=== PATIENT | female | born 1945 | race Two or more races ===

== ENCOUNTER 2022-09-21 08:23 | Outpatient (CLI) | payer OTHER ==
[2022-09-21] MEDS ORDERED: NAMENDA XR7 MG PO (15:14)
== END 2022-09-21 08:32 | disposition home or self-care (01) ==
LOC: RAD 08:23
DX: M25.511 Pain in right shoulder (principal); M79.621 Pain in right upper arm; M25.50 Pain in unspecified joint; R07.2 Precordial pain; S42.231A 3-part fracture of surgical neck of right humerus, initial encounter for closed fracture; S06.0X0A Concussion without loss of consciousness, initial encounter

== ENCOUNTER 2022-09-21 13:02 | Outpatient (CLI) | payer OTHER ==
[2022-09-21] MEDS ORDERED: NAMENDA XR7 MG PO (15:14)
== END 2022-09-21 13:03 | disposition home or self-care (01) ==
LOC: LAB 13:02
PROVIDERS: ATTEND Orthopaedic Surgery
DX: D64.9 Anemia, unspecified (principal); D68.8 Other specified coagulation defects; N39.0 Urinary tract infection, site not specified; E11.9 Type 2 diabetes mellitus without complications; I10 Essential (primary) hypertension

== ENCOUNTER 2022-12-04 09:25 | Outpatient (CLI) | payer OTHER ==
[~2022-12-04 09:25] MED LIST: NAMENDA XR7 MG PO
== END 2022-12-04 09:31 | disposition home or self-care (01) ==
LOC: NUCLEAR 09:25
PROVIDERS: ATTEND Orthopaedic Surgery
DX: M81.0 Age-related osteoporosis without current pathological fracture (principal)

== ENCOUNTER → 2022-12-04 09:50 | Outpatient (CLI) | payer OTHER | END | disposition home or self-care (01) | LOC: LAB 09:50 | PROVIDERS: ATTEND Orthopaedic Surgery | DX: S42.231D 3-part fracture of surgical neck of right humerus, subsequent encounter for fracture with routine healing (principal); E55.9 Vitamin D deficiency, unspecified; M85.9 Disorder of bone density and structure, unspecified; E56.1 Deficiency of vitamin K; E21.3 Hyperparathyroidism, unspecified; E88.9 Metabolic disorder, unspecified; M81.8 Other osteoporosis without current pathological fracture ==

== ENCOUNTER 2022-12-05 06:09 | Outpatient (CLI) | payer OTHER | END 2022-12-05 06:10 | disposition home or self-care (01) | LOC: LAB 06:09 | PROVIDERS: ATTEND Orthopaedic Surgery | DX: D64.9 Anemia, unspecified (principal); D68.8 Other specified coagulation defects; N39.0 Urinary tract infection, site not specified; E11.9 Type 2 diabetes mellitus without complications; Z86.14 Personal history of Methicillin resistant Staphylococcus aureus infection ==

== ENCOUNTER 2022-12-18 10:55 | Outpatient (CLI) | payer OTHER ==
[~2022-12-18 10:55] MED LIST changes: +ARICEPT5 MG PO; +FOLIC ACID0.8 M1 PO
[2022-12-19] MEDS ORDERED: DONEPEZIL HCL23 MG (15:04)
[2022-12-19] MEDS ORDERED: CELECOXIB200 MG (15:04)
== END 2022-12-18 10:56 | disposition home or self-care (01) ==
LOC: LAB 10:55
PROVIDERS: ATTEND Orthopaedic Surgery
DX: Z03.818 Encounter for observation for suspected exposure to other biological agents ruled out (principal)

== ENCOUNTER 2022-12-19 06:45 | Inpatient (IN) | payer OTHER ==
[2022-12-19] MEDS ORDERED: DONEPEZIL HCL23 MG (15:04)
[2022-12-19] MEDS ORDERED: CELECOXIB200 MG (15:04)
== END 2022-12-21 21:11 | disposition home or self-care (01) | DRG 483 ==
LOC: CIR.AMB 06:45 → O/R 13:45 → SURH 13:45
PROVIDERS: ADMIT Orthopaedic Surgery; ATTEND Orthopaedic Surgery
PROC: 0RW Upper Joints, Revision (ICD-10-PCS; 2022-12-19)
PROC: 0LS30ZZ Reposition Right Upper Arm Tendon, Open Approach (ICD-10-PCS; 2022-12-19)
PROC: 0PB90ZZ Excision of Right Clavicle, Open Approach (ICD-10-PCS; 2022-12-19)
PROC: 0RRJ00Z Replacement of Right Shoulder Joint with Reverse Ball and Socket Synthetic Substitute, Open Approach (ICD-10-PCS; principal; 2022-12-19 06:45)
PROC: 30233N1 Transfusion of Nonautologous Red Blood Cells into Peripheral Vein, Percutaneous Approach (ICD-10-PCS; 2022-12-20)
DX: T84.89XA Other specified complication of internal orthopedic prosthetic devices, implants and grafts, initial encounter (principal); M75.21 Bicipital tendinitis, right shoulder; M75.101 Unspecified rotator cuff tear or rupture of right shoulder, not specified as traumatic; M19.011 Primary osteoarthritis, right shoulder; D64.89 Other specified anemias; G30.8 Other Alzheimer's disease; F02.80 Dementia in other diseases classified elsewhere, unspecified severity, without behavioral disturbance, psychotic disturbance, mood disturbance, and anxiety

== ENCOUNTER 2023-01-08 10:01 | Outpatient (CLI) | payer OTHER ==
[~2023-01-08 10:01] MED LIST changes: +CELECOXIB200 MG; +DONEPEZIL HCL23 MG
== END 2023-01-08 10:08 | disposition home or self-care (01) ==
LOC: RAD 10:01
DX: M25.511 Pain in right shoulder (principal)

== ENCOUNTER 2023-03-26 09:19 | Outpatient (CLI) | payer OTHER | END 2023-03-26 10:00 | disposition home or self-care (01) | LOC: TOM 09:19 | PROVIDERS: ATTEND Orthopaedic Surgery | DX: R41.0 Disorientation, unspecified (principal); Z20.822 Contact with and (suspected) exposure to COVID-19; Z11.52 Encounter for screening for COVID-19; R05.9 Cough, unspecified; R05.8 Other specified cough; J11.1 Influenza due to unidentified influenza virus with other respiratory manifestations; A49.3 Mycoplasma infection, unspecified site; Z96.611 Presence of right artificial shoulder joint ==

== ENCOUNTER → 2023-03-26 09:41 | Outpatient (CLI) | payer OTHER | END | disposition home or self-care (01) | LOC: LAB 09:41 | DX: R05.8 Other specified cough (principal); R50.9 Fever, unspecified; J11.1 Influenza due to unidentified influenza virus with other respiratory manifestations; A49.3 Mycoplasma infection, unspecified site; Z11.52 Encounter for screening for COVID-19; Z20.822 Contact with and (suspected) exposure to COVID-19 ==

== ENCOUNTER 2023-10-09 08:30 | Emergency (ER) | payer OTHER ==
[~2023-10-09] VITALS: Ht 157.5 cm; Wt 61.7 kg
[2023-10-09] MEDS ORDERED: TYMLOS1.56 ML SUBCUTANEO (08:42)
== END 2023-10-09 11:14 | disposition home or self-care (01) ==
LOC: ER 08:30
DX: S00.83XA Contusion of other part of head, initial encounter (principal); W18.39XA Other fall on same level, initial encounter; Y93.89 Activity, other specified; Y92.89 Other specified places as the place of occurrence of the external cause; G30.8 Other Alzheimer's disease; F02.80 Dementia in other diseases classified elsewhere, unspecified severity, without behavioral disturbance, psychotic disturbance, mood disturbance, and anxiety

== ENCOUNTER 2023-12-05 07:01 | Outpatient (CLI) | payer OTHER ==
[~2023-12-05 07:01] MED LIST changes: +TYMLOS1.56 ML SUBCUTANEO
[2023-12-05 08:57] LABS: ALBUMIN 3.5 gm/dL (3.4-5.0); BILIRUBIN TOTAL 0.48 mg/dL (0.3-1.2); CALCIUM 9.1 mg/dL (8.5-10.1); CREATININE SERUM 0.74 mg/dL (0.55-1.02); GFR 75.51; GLOBULINA 3.6 G/DL (2.4-3.5); MAGNESIUM 2.2 mg/dL (1.8-2.4); PHOSPHOROUS 3.5 mg/dL (2.5-4.9); POTASSIUM 4.49 mEq/L (3.5-5.1); TOTAL PROTEIN 7.1 gm/dL (6.4-8.2)
== END 2023-12-05 07:03 | disposition home or self-care (01) ==
LOC: LAB 07:01
PROVIDERS: ATTEND Orthopaedic Surgery
DX: E55.9 Vitamin D deficiency, unspecified (principal); M85.9 Disorder of bone density and structure, unspecified; E56.1 Deficiency of vitamin K; E21.3 Hyperparathyroidism, unspecified; M81.8 Other osteoporosis without current pathological fracture; E88.89 Other specified metabolic disorders

== ENCOUNTER 2023-12-05 07:27 | Outpatient (CLI) | payer OTHER | END 2023-12-05 07:30 | disposition home or self-care (01) | LOC: RAD 07:27 | PROVIDERS: ATTEND Orthopaedic Surgery | DX: Z96.611 Presence of right artificial shoulder joint (principal) ==

== ENCOUNTER 2023-12-05 08:29 | Outpatient (CLI) | payer OTHER | END 2023-12-05 08:30 | disposition home or self-care (01) | LOC: NUCLEAR 08:29 | PROVIDERS: ATTEND Orthopaedic Surgery | DX: M81.0 Age-related osteoporosis without current pathological fracture (principal) ==

== ENCOUNTER 2025-03-02 10:30 | Outpatient (CLI) | payer OTHER | END 2025-03-02 10:38 | disposition home or self-care (01) | LOC: RAD 10:30 | PROVIDERS: ATTEND Orthopaedic Surgery | DX: S59.901A Unspecified injury of right elbow, initial encounter (principal); M79.601 Pain in right arm; M25.521 Pain in right elbow ==

== ENCOUNTER 2025-03-09 14:42 | Outpatient (CLI) | payer OTHER ==
[2025-03-11] MEDS ORDERED: BUSPIRONE HCL10 MG PO (12:13)
== END 2025-03-10 13:37 | disposition home or self-care (01) ==
LOC: RAD 14:42
PROVIDERS: ATTEND Orthopaedic Surgery
DX: M25.521 Pain in right elbow (principal)

== ENCOUNTER 2025-03-10 13:01 | Outpatient (CLI) | payer OTHER ==
[2025-03-11] MEDS ORDERED: BUSPIRONE HCL10 MG PO (12:13)
== END 2025-03-10 13:05 | disposition home or self-care (01) ==
LOC: RAD 13:01
PROVIDERS: ATTEND Orthopaedic Surgery
DX: M25.521 Pain in right elbow (principal)

== ENCOUNTER → 2025-03-17 | Day surgery (SDC) | payer OTHER ==
[2025-03-11 12:14] VITALS: BP 83/44
[2025-03-11 12:20] LABS: HEMATOCRIT 35.3 % (36.0-45.00); HEMOGLOBIN 12.1 g/dL (12.0-15.00); MEAN CELL VOLUME 92.3 fL (80.00-100.00); MEAN CORPUSCULAR HEMOGLOBIN 31.6 pg (27.00-32.0); MEAN CORPUSCULAR HGB CONC 34.2 g/dl (32.0-36.0); PLATELET COUNT 318 K/uL (150-450); RED BLOOD COUNT 3.83 M/uL (4.00-6.00); RED CELL DISTRIBUTION WIDTH 16.9 % (11.5-14.5)
[2025-03-11 12:27] LABS: COL EPI 75 SECONDS (82-175)
[2025-03-11 12:32] LABS: INR 0.97; PARTIAL THROMBOPLASTIN TIME 26.3 SECONDS (22.0-34.0); PROTHROMBIN TIME 10.6 SECONDS (9.0-11.5)
[2025-03-11 13:22] LABS: ALBUMIN 3.4 gm/dL (3.4-5.0); BILIRUBIN TOTAL 0.66 mg/dL (0.3-1.2); CALCIUM 9.1 mg/dL (8.5-10.1); CREATININE SERUM 0.86 mg/dL (0.55-1.02); GFR 63.33; GLOBULINA 3.7 G/DL (2.4-3.5); POTASSIUM 4.86 mEq/L (3.5-5.1); TOTAL PROTEIN 7.1 gm/dL (6.4-8.2)
[~2025-03-17] VITALS: Ht 157.5 cm; Wt 72.6 kg
[~2025-03-17] MED LIST changes: +BUPIVACAINE HCL/MPF 0.5% 30ML VIAL ONE; +BUSPIRONE HCL10 MG PO; +CEFAZOLIN SODIUM 1,000 MG VIAL ONE; +SUGAMMADEX SODIUM 200 MG/2 ML VIAL IV ONE
== END | disposition home or self-care (01) ==
LOC: ADM 03-11 11:00 → CIR.AMB 05:36
PROVIDERS: ATTEND Orthopaedic Surgery
DX: S42.451A Displaced fracture of lateral condyle of right humerus, initial encounter for closed fracture (principal)
CPT/HCPCS: 24579; L8699

== ENCOUNTER 2025-04-08 12:07 | Outpatient (CLI) | payer OTHER ==
[~2025-04-08 12:07] MED LIST changes: -BUPIVACAINE HCL/MPF 0.5% 30ML VIAL ONE; -CEFAZOLIN SODIUM 1,000 MG VIAL ONE; -SUGAMMADEX SODIUM 200 MG/2 ML VIAL IV ONE
== END 2025-04-08 12:08 | disposition home or self-care (01) ==
LOC: RAD 12:07
PROVIDERS: ATTEND Orthopaedic Surgery
DX: M25.521 Pain in right elbow (principal)

== ENCOUNTER 2025-05-14 07:24 | Outpatient (CLI) | payer OTHER | END 2025-05-14 07:29 | disposition home or self-care (01) | LOC: RAD 07:24 | PROVIDERS: ATTEND Orthopaedic Surgery | DX: S42.451D Displaced fracture of lateral condyle of right humerus, subsequent encounter for fracture with routine healing (principal) ==

== ENCOUNTER 2025-05-18 07:51 | Outpatient (CLI) | payer OTHER | END 2025-05-18 07:54 | disposition home or self-care (01) | LOC: RAD 07:51 | PROVIDERS: ATTEND Orthopaedic Surgery | DX: Z76.89 Persons encountering health services in other specified circumstances (principal) ==

== ENCOUNTER 2025-05-26 05:53 | Day surgery (SDC) | payer OTHER ==
[2025-05-18 08:34] LABS: INR 1.00
[2025-05-18 08:39] LABS: BASO % 0.3 % (0.1-1.2); EOS # 0.06 (0.04-0.54); EOS % 1.5 % (0.7-7.0); LYMPH # 1.52 (1.18-3.74); LYMPH % 38.3 % (19.3-53.1); MEAN PLATELET VOLUME 9.90 fl (9.4-12.4); MONO # 0.37 (0.24-0.82); MONO % 9.3 % (4.7-12.5); NEUT # 1.66 (1.56-6.13); NEUT % 41.8 % (34.0-71.1); RED CELL DISTRIBUTION WIDTH 15.9 % (11.6-14.4)
[2025-05-18 08:44] LABS: COL EPI 86 SECONDS (82-175)
[2025-05-18 08:56] LABS: ALT/SGPT 41.0 U/L (12-78); AST/SGOT 25.0 U/L (15-37); BILIRUBIN TOTAL 0.6 mg/dL (0.3-1.2); BUN CREA RATIO 22.0 (7.0-25.0); CREATININE SERUM 1.14 mg/dL (0.55-1.02); GFR 45.74; GLOBULINA 4.0 G/DL (2.4-3.5); GLUCOSE FASTING 114.0 mg/dL (65-100); OSMOLALITY SERUM 287.0 MOSM/KG (275-295)
[2025-05-18 09:39] LABS: BAND MAN 4.0 %; EOSINOPHIL MAN 2.0 %; LYMPHOCYTE MAN 35.0 %; MONOCYTE MAN 10.0 %; MYELOCYTE 1.0 %; NEUTROPHILS MAN 46.0 %
[2025-05-18 12:59] LABS: URINE APPEARANCE Clear; URINE BILIRRUBIN Negative (NEGATIVE); URINE BLOOD Negative; URINE COLOR Yellow; URINE GLUCOSE Negative (NEGATIVE); URINE KETONE Trace (NEGATIVE); URINE LEUKOCYTE Moderate; URINE NITRATE Negative; URINE PROTEIN Trace (NEGATIVE); URINE UROBILINOGEN 1.0 E.U./dl
[2025-05-18 13:02] LABS: URINE BACTERIA 3189.5 uL (0.0-1933); URINE CAST 3.97 uL (0.0-1.40); URINE EPITHELIAL CELLS 27.2 uL (0.0-38.8); URINE RBC 14.5 uL (0.0-20.8); URINE WBC 111.4 uL (0.0-23.2)
[2025-05-25 14:56] VITALS: BP 68/42
[~2025-05-26 05:53] MED LIST changes: +LEVOTHYROXINE25 MCG PO; +ZYRTEC10 M3 PO
[2025-05-26] MEDS ORDERED: CEFAZOLIN SODIUM 1,000 MG VIAL IV ONE (09:00)
[2025-05-26] MEDS ORDERED: MORPHINE SULFATE 4 MG/ML VIAL IV ONE (09:15)
== END 2025-05-26 11:40 | disposition home or self-care (01) ==
LOC: CIR.AMB 05:53
PROVIDERS: ATTEND Orthopaedic Surgery
DX: T84.84XA Pain due to internal orthopedic prosthetic devices, implants and grafts, initial encounter (principal); M67.3 Transient synovitis; M24.522 Contracture, left elbow